=== PATIENT | female | born 1990 | race Caucasian/White ===

== ENCOUNTER 2017-05-01 11:35 | Day surgery (SDC) | payer OTHER | END 2017-05-01 17:19 | disposition home or self-care (01) | LOC: CIR.AMB 11:35 | DX: N87.0 Mild cervical dysplasia (principal); N72 Inflammatory disease of cervix uteri ==

== ENCOUNTER 2018-01-02 17:52 | Inpatient (IN) | payer OTHER ==
[~2018-01-02] VITALS: Ht 162.6 cm; Wt 1.8 kg
[2018-01-02] MEDS ORDERED: PRENATAL FORMU1 EAC1 PO (20:49)
== END 2018-01-07 14:30 | disposition home or self-care, planned readmission (81) | DRG 788 ==
LOC: LDR 17:52 → O/R 01-04 14:21 → OB/GYN 01-04 17:27
PROVIDERS: Obstetrics & Gynecology Obstetrics
PROC: 4A1HXCZ Monitoring of Products of Conception, Cardiac Rate, External Approach (ICD-10-PCS; 2018-01-04)
PROC: 10D00Z1 Extraction of Products of Conception, Low, Open Approach (ICD-10-PCS; principal; 2018-01-04 14:00)
DX: O60.14X2 Preterm labor third trimester with preterm delivery third trimester, fetus 2 (principal); O30.043 Twin pregnancy, dichorionic/diamniotic, third trimester; Z3A.35 35 weeks gestation of pregnancy; Z37.2 Twins, both liveborn